=== PATIENT | female | born 1980 | race Caucasian/White ===

== ENCOUNTER 2020-07-03 16:13 | Emergency (ER) | payer MEDICARE, MEDICAID, SELFPAY ==
[2020-07-03] VITALS (10 sets, daily range): BP systolic 116–132; BP diastolic 64–75; PULSE 100–113; RESP 16–40; TEMP 37–37.1; O2SAT 97–99; BMI 31.3
--- NOTE | 2020-07-03 16:34 | ED.ALLEREA ---
HPI - Allergic Reaction General Chief complaint: Allergic Reaction Stated complaint: Throat swelling Time Seen by Provider: 07/03/20 16:14 Source: patient and family History of Present Illness HPI narrative: Patient has history of angioedema. Only effective with treatment with Kalbitor, ecallantide, patient followed by dr jo paredes, residential green building designer, I spoke with him by phone. Phone number [phone]. Patient does not have this medication on hand with her. She is visiting from [place]. Out here for lunch. She forgot to bring it with her. She keeps with her the time. Unknown trigger this afternoon but complains of trouble breathing and throat tightening. Patient is able to speak full sentences but has hoarse voice. No rash. No tongue swelling. No lip swelling. Patient admitted [facility] in the past with her own medications at bedside. Solu-Medrol and epinephrine does not work according to her residential green building designer. I spoke with him by phone. phone number [phone]. No rash. No known triggers today. Patient residential green building designer advised to try Pepcid and Maalox, and feels better, will have time to transfer patient to [facility] in [place] where can meet her there with ambulance in the emergency department for her medication. is on his way home now from here to get the medication. He will meet patient at [facility] Emergency Department. We will transfer by ambulance Related Data Allergies Allergy/AdvReac Type Severity Reaction Status Date / Time venom-honey bee Allergy Verified 07/03/20 16:45 venom-wasp Allergy Verified 07/03/20 16:45 Review of Systems Review of Systems Narrative: GENERAL: Denies chills, fatigue, malaise, fever, sweats. HEENT: Denies sinus pain, ear pain, sore throat RESPIRATORY: Complains dyspnea, cough CARDIOVASCULAR: Denies chest pain, palpitations GASTROINTESTINAL: Denies nausea, vomiting, abdominal pain : Denies dysuria, frequency, hematuria MUSCULOSKELETAL: denies muscle or bony pain SKIN: Denies rash, skin lesions NEUROLOGIC: Denies weakness, numbness ROS Unobtainable: All systems reviewed & are unremarkable except as noted in HPI and below Exam Narrative Exam Narrative: GENERAL: in no distress, not toxic, on presentation moderate respiratory distress, improved with oxygen supplement, Pepcid and Maalox HEAD: Normocephalic. EYES: Pupils equal round No scleral icterus. No injection no discharge ENT: Mucous membranes moist. No tongue or lip swelling. The NECK: Trachea midline. No stridor CARDIOVASCULAR: Regular rate and rhythm without murmurs RESPIRATORY: Clear to auscultation. Breath sounds equal bilaterally. No wheezing or rhonchi. Clear and equal lung sounds. GASTROINTESTINAL: Abdomen soft, non-tender EXTREMITIES: No gross deformities. BACK: No flank tenderness. NEURO: AOx4. SKIN: Warm and dry, pink skin. PSYCH: Not anxious, is cooperative Initial Vital Signs Initial Vital Signs: Vital Signs Temperature 98.8 F 07/03/20 16:15 Pulse Rate 110 H 07/03/20 16:15 Respiratory Rate 40 H 07/03/20 16:15 Blood Pressure 132/72 07/03/20 16:15 Pulse Oximetry 99 07/03/20 16:15 Course Orders Ordered: Discontinued Medications Al Hydrox/Mg Hydrox/Simethicone (Mag Hydrox/Alum/Simeth 30 Ml Udc) 30 ml PO NOW ONE Stop: 07/03/20 16:34 Last Admin: 07/03/20 16:38 Dose: 30 ml Documented by: MAX Al Hydrox/Mg Hydrox/Simethicone (Mag Hydrox/Alum/Simeth 30 Ml Udc) 30 ml PO NOW ONE Stop: 07/03/20 16:34 Last Admin: 07/03/20 16:38 Dose: 30 ml Documented by: MAX Famotidine (Famotidine 20 Mg/2 Ml Vial) 20 mg IV DAILY ALEXA Famotidine (Pepcid) 20 mg in 50 mls @ 200 mls/hr IV NOW ONE Stop: 07/03/20 16:47 Last Infusion: 07/03/20 17:34 Dose: 0 mls/hr Documented by: Admin: 07/03/20 16:38 Dose: 200 mls/hr Documented by: MAX Reevaluation(s) Reevaluation #1: Patient doing much better with Pepcid as well as Mylanta. Non-rebreather with RT at bedside. Speaking full sentences. No oral swelling at this time. Time: 16:49 Reevaluation #2: Patient doing very well now. [employer] is here loading patient to take onto helicopter to [facility] Emergency Department. Patient states feels much better. Breathing with ease. In no distress. She is smiling and joking with the staff. Time: 17:39 Consultations Consultation #1: Spoke with patient's residential green building designer, dr jo paredes, patient will need her home medication, kalbitor, it is very rare medication. Unfortunately it is at patient's residence. At this time, may try Maalox and Pepcid. If feels better made transfer patient to [facility], patient closer to her medication as she lives in [place] Time: 16:30 Consultation #2: Spoke with [facility] doctor andelin, will accept patient, he understands will be getting medication from the home and bring it to the [facility] ER, at this time patient is feeling better after Maalox and Pepcid. Airway protected. Time: 16:51 Vital Signs Vital signs: Vital Signs - 8 hr 07/03/20 16:15 07/03/20 16:22 07/03/20 16:30 Temperature 98.8 F Pulse Rate 110 H 113 H 110 H Respiratory Rate 40 H 24 28 H Blood Pressure 132/72 Pulse Oximetry 99 99 98 07/03/20 16:31 07/03/20 16:51 07/03/20 17:00 Temperature Pulse Rate 110 H 103 H 103 H Respiratory Rate 32 H 28 H 16 Blood Pressure 132/72 125/75 116/65 Pulse Oximetry 98 98 97 07/03/20 17:15 07/03/20 17:28 07/03/20 17:30 Temperature 98.6 F 98.6 F Pulse Rate 100 H 104 H 105 H Respiratory Rate 25 H 33 H 23 Blood Pressure 126/64 126/64 126/64 Pulse Oximetry 98 98 MDM - Allergic Reaction Differential Diagnosis Differential diagnosis: Likely angioedema Lab Data Labs: Lab Results 07/03/20 Range/Units 16:15 Blood Type O Positive MDM Narrative Medical decision making narrative: Appropriate for transfer. Patient feels much better after treatment here. [facility]FP ordered and started. Appropriate for airlift transport as patient needs expanded transfer. The medication patient requires is very limited. Is very rare. No local pharmacies or hospitals have it. Only resources to get patient's supply brought to the emergency department near their house in [place]. Patient and agree Discharge Plan Departure Patient Disposition: Xfer Acute Care Hospital Clinical Impression: Angioedema Qualifiers: Encounter type: initial encounter Qualified Code(s): T78.3XXA - Angioneurotic edema, initial encounter
[2020-07-03] MEDS: FAMOTIDINE 20 MG/50 ML PIGGYBACK 200 MG IV (16:38)
[2020-07-03] MEDS: MAG HYDROX/ALUM/SIMETH 30 ML UDC PO ×2 (16:38)
--- NOTE | 2020-07-03 17:50 | PC.NURSE ---
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 pt uses calvitor medication that is nonformulary at this hospital or area pharmacies. pt lives in [place] with . is getting medications and taking them to [place] pt being transferred via helicoptor ground with ffp infusing via rac, hung just prior to transfer. pt on nonreabreather mask.
== END 2020-07-03 17:40 | disposition short-term general hospital (02) ==
PROVIDERS: Emergency Provider Emergency Medicine
DX: T78.3XXA Angioneurotic edema, initial encounter (principal); T78.40XA Allergy, unspecified, initial encounter
CPT/HCPCS: 36430; 86900; 86901; 86927; 96365; 99285; 99291; 99292; P9016; P9017